=== PATIENT | male | born 1985 | race Hispanic/Latino ===

== ENCOUNTER 2018-10-04 10:16 | Emergency (ER) | payer BC ==
[2018-10-04 10:29] VITALS: BP 134/81; PULSE 83; RESP 19; TEMP 98.5; O2SAT 99
[2018-10-04] MEDS ORDERED: Rabies Immune Globulin 1500 Unit/5ml Vial IM ONE (11:00)
--- NOTE | 2018-10-04 11:04 | ED PDOC ---
Arrival/HPI - General Historian: Patient - History of Present Illness Narrative History of Present Illness (Text): 10/04/18 10:53 32 y o male PMhx HTN, anxiety presents to the ED for rabies vaccination. 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 States that he was taking care of a bat that appeared lethargic and the bat sprayed saliva into pt's mouth and on face in 2 spots. Denies teeth covarrubias or penetrating wounds to face. States he went to his PMD's office for further management, and was told to come to the ED because they did not have the rabies vaccine in their office. States he last received rabies vaccine x 3 doses 10 years ago for pre-exposure prophylaxis. Denies headache, fever, chills, chest pain, sob, n/v/d/c/, abd pain, urinary complaints, or other symptoms. PMHx: HTN, anxiety PSurgHx: denies Allergies: NKDA Home meds: Lisinopril 20 mg daily, Escitalopram 20 mg daily Fam hx: denies Soc hx: denies smoking, EtOH or illicit drug use PMD: Dr. Mariposa Degroot Time/Duration: Other (3 days ago) Symptom Onset: Sudden Symptom Course: Unchanged Quality: Unable to Describe Context: Work <Chase Groves - Last Filed: 10/04/18 11:27> <Junito Ervin - Last Filed: 10/04/18 12:07> - General Chief Complaint: Bite Time Seen by Provider: 10/04/18 10:31 Past Medical History - Provider Review Nursing Documentation Reviewed: Yes - Travel History Have you recently traveled outside [place] w/in the past 3 mons?: No - Infectious Disease Hx of Infectious Diseases: None - Cardiac Hx Hypertension: Yes - Psychiatric Hx Substance Use: No - Surgical History Hx Cholecystectomy: Yes Other/Comment: hernia repair - Anesthesia Hx Anesthesia: Yes Hx Anesthesia Reactions: No Hx Malignant Hyperthermia: No <Chase Groves - Last Filed: 10/04/18 11:27> Family/Social History Family/Social History: No Known Family HX Smoking Status: Current Some Days Smoker Hx Alcohol Use: No Hx Substance Use: No <Chase Groves - Last Filed: 10/04/18 11:27> Allergies/Home Meds <Chase Groves - Last Filed: 10/04/18 11:27> <Junito Ervin - Last Filed: 10/04/18 12:07> Allergies/Adverse Reactions: Allergies No Known Allergies Allergy (Verified 10/04/18 10:29) Home Medications: Home Meds Medication Instructions Recorded Confirmed Escitalopram [Lexapro] 1 tab PO DAILY 10/04/18 10/04/18 Lisinopril [Zestril] 20 mg PO DAILY 10/04/18 10/04/18 Review of Systems - Physician Review All systems were reviewed & negative as marked: Yes - Review of Systems Constitutional: absent: Fatigue Eyes: absent: Vision Changes ENT: absent: Hearing Changes, Tinnitus, TMJ Pain Respiratory: absent: SOB, Cough, Wheezing Cardiovascular: absent: Chest Pain, Palpitations, Edema, MALDONADO Gastrointestinal: absent: Abdominal Pain, Stool Changes, Constipation, Diarrhea, Nausea, Vomiting Skin: absent: Rash, Pruritis, Laceration Neurological: absent: Headache, Dizziness Endocrine: absent: Diaphoresis <Chase Groves - Last Filed: 10/04/18 11:27> Physical Exam Vital Signs Temp Pulse Resp BP Pulse Ox 10/04/18 10:23 98.5 F 83 19 134/81 99 Temperature: Afebrile Blood Pressure: Normal Pulse: Regular Respiratory Rate: Normal Appearance: Positive for: Well-Appearing, Non-Toxic, Comfortable Pain Distress: None Mental Status: Positive for: Alert and Oriented X 3 - Systems Exam Head: Present: Atraumatic, Normocephalic Pupils: Present: PERRL Extroacular Muscles: Present: EOMI Conjunctiva: Present: Normal Mouth: Present: Moist Mucous Membranes Pharnyx: No: ERYTHEMA, EXUDATE Neck: Present: Normal Range of Motion. No: JVD, Lymphadenopathy Respiratory/Chest: Present: Clear to Auscultation, Good Air Exchange. No: Respiratory Distress, Accessory Muscle Use, Wheezes, Rales, Rhonchi Cardiovascular: Present: Regular Rate and Rhythm, Normal S1, S2. No: Murmurs, Rub, Gallop Abdomen: Present: Normal Bowel Sounds. No: Tenderness, Distention, Mass/Org anomegaly Upper Extremity: Present: Normal Inspection, Normal ROM, NORMAL PULSES, Neurovascularly Intact, Capillary Refill < 2s. No: Cyanosis, Edema, Temperature Abnormalties Lower Extremity: Present: Normal Inspection, NORMAL PULSES, Normal ROM, Neurovascularly Intact, Capillary Refill < 2 s. No: Edema, Temperature Abnormalties Neurological: Present: GCS=15, CN II-XII Intact, Speech Normal, Motor Func Grossly Intact, Normal Sensory Function, Normal Cerebellar Funct, Gait Normal, Memory Normal Skin: Present: Warm, Dry, Normal Color. No: Rashes <Chase Groves - Last Filed: 10/04/18 11:27> Vital Signs Temp Pulse Resp BP Pulse Ox 10/04/18 10:23 98.5 F 83 19 134/81 99 <Junito Ervin - Last Filed: 10/04/18 12:07> Medical Decision Making ED Course and Treatment: 10/04/18 11:07 32 y o male PMhx HTN, anxiety presents for rabies post-exposure vaccination. Plan: -Rabies vaccine -Rabies Immune globulin Will continue to monitor after vaccine administration. 10/04/18 11:27 Pt reassessed after vaccine administration. Currently asymptomatic. Instructed pt to follow-up in 3 days, 7 days, and 14 days after initial vaccination for series of rabies vaccines to complete 4 total for post-exposure prophylaxis. Pt can receive vaccine at any health facility that provides rabies vaccines. Instructed to call his PMD or return to the ED if he becomes symptomatic or his symptoms worsen. All questions and concerns addressed with pt and he is agreeable to plan. - Medication Orders Current Medication Orders: Rabies Immune Globulin (Imogam) 20 intlu IM .ONCE ONE Stop: 10/04/18 10:48 Discontinued Medications Rabies Vaccine Human Diploid Cell (Rabavert Vaccine Inj) 2.5 units IM .ONCE ONE Stop: 10/04/18 10:44 <Chase Groves - Last Filed: 10/04/18 11:27> ED Course and Treatment: 10/04/18 11:20 Patient is a 32 year old male presenting to the emergency department for a rabies vaccination after bat exposure. In agreement with resident note, which includes further HPI details. Patient was seen and evaluated with resident, came up with plan and treatment together. 10/04/18 12:07 pt seen with resident. s/p exposure to bat saliva. ig and vaccine seriies intiated. - Medication Orders Current Medication Orders: Discontinued Medications Rabies Immune Globulin (Hyperrab 1500 Unit/5ml Vial) 1,940 unit IM ONCE ONE Stop: 10/04/18 11:01 Last Admin: 10/04/18 11:09 Dose: 1,940 unit IM Administration Charges Document 10/04/18 11:09 EQ (Rec: 10/04/18 11:09 EQ [id number]) Injection Site MAR Injection Site Left Deltoid Charges for Administration # of IM Administrations 1 Rabies Vaccine Human Diploid Cell (Rabavert Vaccine Inj) 2.5 units IM .ONCE ONE Stop: 10/04/18 10:44 Last Admin: 10/04/18 11:18 Dose: 2.5 units Immunization Registry Document 10/04/18 11:18 EQ (Rec: 10/04/18 11:18 EQ [id number]) [facility]-Date provided 10/04/18 <Junito Ervin - Last Filed: 10/04/18 12:07> - PA / PATTERN MARKING SUPERVISOR / Resident Statement MD/DO has reviewed & agrees with the documentation as recorded. MD/DO has examined the patient and agrees with the treatment plan. - Scribe Statement The provider has reviewed the documentation as recorded by the Abiodun De La Rosa All medical record entries made by the Archieiblonnie were at my direction and personally dictated by me. I have reviewed the chart and agree that the record accurately reflects my personal performance of the history, physical exam, medical decision making, and the department course for this patient. I have also personally directed, reviewed, and agree with the discharge instructions and disposition. <Junito Ervin - Last Filed: 10/04/18 12:07> Disposition/Present on Arrival - Present on Arrival Any Indicators Present on Arrival: No History of DVT/PE: No History of Uncontrolled Diabetes: No Urinary Catheter: No History of Decub. Ulcer: No History Surgical Site Infection Following: None - Disposition Have Diagnosis and Disposition been Completed?: Yes Disposition Time: 11:30 <Chase Groves - Last Filed: 10/04/18 11:27> <Junito Ervin - Last Filed: 10/04/18 12:07> - Disposition Diagnosis: Rabies exposure Disposition: HOME/ ROUTINE Condition: IMPROVED Discharge Instructions (ExitCare): Rabies (DC), Rabies Vaccine Print Language: CROATIAN Additional Instructions: Please follow-up at 3 days (10/07/18), 7 days (Sun10/11/18) and 14 days (10/18/18) after initial rabies vaccine for series of 3 additional vaccine doses for rabies. Can follow-up at [facility] or any other institution that has the rabies vaccine. Please follow-up with your primary care physician within 2-3 days after ER discharge. Should your symptoms recur or worsen, please call your primary care physician or report to your nearest emergency department. Referrals: Mariposa Degroot MD [Family Provider] - Follow up with primary Forms: [employer] ([place])
== END 2018-10-04 11:34 | disposition home or self-care (01) ==
LOC: ED 10:16
DX: Z23 Encounter for immunization (principal); I10 Essential (primary) hypertension

== ENCOUNTER 2018-10-07 13:30 | Emergency (ER) | payer BC ==
[2018-10-07 13:50] VITALS: BP 159/97; PULSE 88; RESP 18; TEMP 98.5; O2SAT 96
--- NOTE | 2018-10-07 14:08 | ED PDOC ---
Arrival/HPI - General Chief Complaint: Rabies Vaccine Series Time Seen by Provider: 10/07/18 13:55 Historian: Patient - History of Present Illness Narrative History of Present Illness (Text): 32 y/o male with PMH of HTN who presents to the ED for his second rabies shot. Originally seen here on 10/04/18 after an encounter with a bat, when he received human rabies immunoglobulin and 1st rabies vaccine. Denies open wounds, numbnes s, paresthesias, weakness, or any other associated symptoms. Past Medical History - Provider Review Nursing Documentation Reviewed: Yes - Infectious Disease Hx of Infectious Diseases: None - Cardiac Hx Hypertension: Yes - Psychiatric Hx Substance Use: No - Surgical History Hx Cholecystectomy: Yes Other/Comment: hernia repair - Anesthesia Hx Anesthesia: Yes Hx Anesthesia Reactions: No Hx Malignant Hyperthermia: No Family/Social History - Physician Review Nursing Documentation Reviewed: Yes Family/Social History: No Known Family HX Smoking Status: Current Some Days Smoker Hx Alcohol Use: No Hx Substance Use: No Allergies/Home Meds Allergies/Adverse Reactions: Allergies No Known Allergies Allergy (Verified 10/07/18 13:50) Home Medications: Home Meds Medication Instructions Recorded Confirmed Escitalopram [Lexapro] 1 tab PO DAILY 10/04/18 10/04/18 Lisinopril [Zestril] 20 mg PO DAILY 10/04/18 10/04/18 Review of Systems - Physician Review All systems were reviewed & negative as marked: Yes - Review of Systems Constitutional: Normal. absent: Fatigue, Weight Change, Fevers, Night Sweats, Other Eyes: Normal. absent: Vision Changes, Photophobia, Eye Pain, Other ENT: Normal. absent: Hearing Changes, Tinnitus, TMJ Pain, Voice Changes, Sore Throat, Rhinorrhea, Epistaxis, Sinus Congestion, Other Respiratory: Normal. absent: SOB, Cough, Sputum, Wheezing, Other Cardiovascular: Normal. absent: Chest Pain, Palpitations, Edema, Calf Pain, MALDONADO, Orthopnea, SY, Syncope, Other Gastrointestinal: Normal. absent: Abdominal Pain, Stool Changes, Constipation, Diarrhea, Nausea, Vomiting, Appetite Changes, Hematochezia, Hematemesis, Anorexia, Food Intolerance, Other Genitourinary Male: Normal. absent: Dysuria, Frequency, Hematuria, Urinary Output Changes, Other Musculoskeletal: Normal. absent: Arthralgias, Back Pain, Neck Pain, Joint Swelling, Myalgias, Other Skin: Normal. absent: Rash, Pruritis, Skin Lesions, Laceration, Abscess, Ulcer, Cellulitis, Other Neurological: Normal. absent: Headache, Dizziness, Focal Weakness, Gait Changes, Speech Changes, SC, Facial Droop, DE, Disequilibrium, SE, Seizure, Other Endocrine: Normal. absent: Diaphoresis, Polyuria, Polydipsia, Other Hemo/Lymphatic: Normal. absent: Adenopathy, Easy Bleeding, Easy Bruising, Other Psychiatric: Normal Physical Exam Vital Signs Reviewed: Yes Vital Signs Temp Pulse Resp BP Pulse Ox 10/07/18 13:48 98.5 F 88 18 159/97 H 96 Temperature: Afebrile Blood Pressure: Hypertensive Pulse: Regular Respiratory Rate: Normal Appearance: Positive for: Well-Appearing, Non-Toxic, Comfortable Pain Distress: None Mental Status: Positive for: Alert and Oriented X 3 - Systems Exam Head: Present: Atraumatic, Normocephalic Pupils: Present: PERRL Extroacular Muscles: Present: EOMI Conjunctiva: Present: Normal Mouth: Present: Moist Mucous Membranes Neck: Present: Normal Range of Motion. No: MIDLINE TENDERNESS Respiratory/Chest: Present: Clear to Auscultation, Good Air Exchange. No: Respiratory Distress, Accessory Muscle Use Cardiovascular: Present: Regular Rate and Rhythm, Normal S1, S2, Peripheal Pulses Present. No: Murmurs Upper Extremity: Present: Normal Inspection, Normal ROM, NORMAL PULSES, Neurovascularly Intact, Capillary Refill < 2s Neurological: Present: GCS=15, CN II-XII Intact, Speech Normal, Motor Func Grossly Intact, Normal Sensory Function, Gait Normal, Memory Normal Skin: Present: Warm, Dry, Normal Color. No: Rashes Psychiatric: Present: Alert, Oriented x 3, Normal Insight, Normal Concentration, Normal Affect, Normal Mood Medical Decision Making ED Course and Treatment: Initial Plan: * Rabies vaccine Plan of care discussed with patient, and strict instructions given regarding importance of follow up, and signs to return to Emergency Department, to include fever, chills, neck pain, sore throat, or any other new/worsening symptoms. Patient verbalizes understanding of discussion. Patient A&Ox3, ambulating with steady gait, stable for discharge home. - Medication Orders Current Medication Orders: Rabies Vaccine Human Diploid Cell (Rabavert Vaccine Inj) 2.5 units IM .ONCE ONE Stop: 10/07/18 14:06 Disposition/Present on Arrival - Present on Arrival Any Indicators Present on Arrival: No History of DVT/PE: No History of Uncontrolled Diabetes: No Urinary Catheter: No History of Decub. Ulcer: No History Surgical Site Infection Following: None - Disposition Have Diagnosis and Disposition been Completed?: Yes Diagnosis: Rabies Disposition: HOME/ ROUTINE Disposition Time: 14:00 Condition: STABLE Discharge Instructions (ExitCare): Rabies (DC) Additional Instructions: Please follow-up at 7 days (10/11/18) and 14 days (10/18/18) after initial rabies vaccine for series of 2 additional vaccine doses for rabies. Can follow- up at [facility] or any other institution that has the rabies vaccine. Followup with primary doctor Return to ER for any new/worsening symptoms Forms: [employer] (Namibian), WORK NOTE
== END 2018-10-07 14:46 | disposition home or self-care (01) ==
LOC: ED 13:30
DX: Z20.3 Contact with and (suspected) exposure to rabies (principal); Z23 Encounter for immunization; I10 Essential (primary) hypertension